=== PATIENT | female | born 1945 | race Caucasian/White ===

== ENCOUNTER → 2023-08-07 06:31 | Day surgery (SDC) | payer OTHER, SELFPAY | LOC: GI 06:31 | PROVIDERS: ATTENDING PHYSICIAN Internal Medicine | DX: K51.50 Left sided colitis without complications (principal); R68.81 Early satiety; K22.2 Esophageal obstruction; K31.7 Polyp of stomach and duodenum; K31.89 Other diseases of stomach and duodenum; K52.3 Indeterminate colitis; K29.50 Unspecified chronic gastritis without bleeding; K51.20 Ulcerative (chronic) proctitis without complications | CPT/HCPCS: 45380; 43239; 88305; 88342 ==

== ENCOUNTER → 2023-08-19 10:47 | Outpatient (REF) | payer OTHER, SELFPAY | LOC: HWRAD 10:47 | PROVIDERS: ATTENDING PHYSICIAN Internal Medicine; FAMILY PHYSICIAN Family Medicine | DX: R68.81 Early satiety (principal); R63.4 Abnormal weight loss; K31.7 Polyp of stomach and duodenum | CPT/HCPCS: 74177; Q9967 ==

== ENCOUNTER → 2023-09-18 06:38 | Day surgery (SDC) | payer OTHER, SELFPAY ==
[2023-09-18] VITALS (13 sets, daily range): BP systolic 119–165; BP diastolic 81–110; BMI 26.3
== END ==
LOC: SDS 06:38
PROVIDERS: ATTENDING PHYSICIAN Internal Medicine Gastroenterology
DX: K86.9 Disease of pancreas, unspecified (principal); R93.3 Abnormal findings on diagnostic imaging of other parts of digestive tract; R93.5 Abnormal findings on diagnostic imaging of other abdominal regions, including retroperitoneum
CPT/HCPCS: 43237

== ENCOUNTER → 2024-01-15 06:12 | Day surgery (SDC) | payer OTHER, SELFPAY | LOC: GI 06:12 | PROVIDERS: ATTENDING PHYSICIAN Internal Medicine; FAMILY PHYSICIAN Family Medicine | DX: K22.70 Barrett's esophagus without dysplasia (principal); K26.9 Duodenal ulcer, unspecified as acute or chronic, without hemorrhage or perforation; K31.89 Other diseases of stomach and duodenum | CPT/HCPCS: 43239; 88305; 88342 ==